=== PATIENT | male | born 1970 | race Caucasian/White ===

== ENCOUNTER 2018-03-17 14:52 | Emergency (ER) | payer MEDICAID, OTHER, SELFPAY ==
[2018-03-17] MEDS ORDERED: FLUCONAZOLE 100 MG TABLET PO ONE (16:30)
[2018-03-17] MEDS ORDERED: FLUCONAZOLE 100 MG TABLET ONE (17:02)
[2018-03-17 17:13] VITALS: BP 138/84
== END 2018-03-17 17:16 | disposition home or self-care (01) ==
LOC: ED 17:05
DX: L30.0 Nummular dermatitis (principal)
CPT/HCPCS: 71046; 99284

== ENCOUNTER 2018-10-24 13:28 | Emergency (ER) | payer MEDICAID ==
[~2018-10-24] VITALS: Ht 170.2 cm; Wt 88.5 kg
--- NOTE | 2018-10-24 14:55 | NUR ---
CSPINE CLEARED BY RADIOLOGY, C COLLAR REMOVED. PT TO XRAY.
[2018-10-24 15:47] VITALS: BP 136/88
--- NOTE | 2018-10-24 15:47 | NUR ---
IS GIVEN AND TEACHING COMPLETED AT TIME OF DISCHARGE.
== END 2018-10-24 15:49 | disposition home or self-care (01) ==
LOC: ED 14:04
DX: S22.31XA Fracture of one rib, right side, initial encounter for closed fracture (principal); S06.311A Contusion and laceration of right cerebrum with loss of consciousness of 30 minutes or less, initial encounter; M47.892 Other spondylosis, cervical region; W01.0XXA Fall on same level from slipping, tripping and stumbling without subsequent striking against object, initial encounter; Y93.89 Activity, other specified; Y92.410 Unspecified street and highway as the place of occurrence of the external cause; Y99.8 Other external cause status
CPT/HCPCS: 70450; 72125; 99284